=== PATIENT | female | born 1955 | race Caucasian/White ===

== ENCOUNTER 2017-08-27 08:19 | Emergency (ER) | payer OTHER ==
[~2017-08-27] VITALS: Ht 152.4 cm; Wt 68.6 kg
[2017-08-27 08:24] VITALS: BP 163/86
--- NOTE | 2017-08-27 08:29 | NUR ---
PT AMB TO BED 11
--- NOTE | 2017-08-27 08:30 | NUR ---
61/F BIB DAUGHTER WITH C/O VOMITING, DIZZINESS, R EAR PAIN & ELAINE X 2 DAYS. SKIN IS PINK/WARM/DRY; AAOX4 WITH EVEN AND STEADY GAIT; LUNGS CLEAR BL. PATIENT STATES PAIN OF 6/10 AT THIS TIME.PATIENT POSITIONED FOR COMFORT; HOB ELEVATED; BEDRAILS UP X2; BED DOWN. JORJE REYNOLDS MADE AWARE OF PT STATUS. Addendum: 08/27/17 at 0853 [facility].
--- NOTE | 2017-08-27 08:35 | NUR ---
Patient being evaluated by DR JJ at bedside.
[2017-08-27] MEDS ORDERED: MECLIZINE 25 MG TAB PO ONE (08:45)
[2017-08-27] MEDS ORDERED: ONDANSETRON 4 MG ODT PO ONE (08:45)
--- NOTE | 2017-08-27 08:56 | NUR ---
EKG AT BEDSIDE.
--- NOTE | 2017-08-27 09:48 | NUR ---
Patient appears to be resting comfortably in bed. BP 143/80; C/O ELAINE 3/10 AT THIS TIME, Respirations even and unlabored. WILL CONTINUE TO MONITOR.
[2017-08-27 10:28] VITALS: BP 141/72
--- NOTE | 2017-08-27 10:28 | NUR ---
Patient discharged with BP 141/72. Written and verbal after care instructions given and explained. Patient alert, oriented and verbalized understanding of instructions. Ambulatory with W/C. All questions addressed prior to discharge. ID band removed. Patient advised to follow up with PMD. Rx of ZOFRAN & MECLIZINE given. Patient educated on indication of medication including possible reaction and side effects. Opportunity to ask questions provided and answered.
== END 2017-08-27 10:28 | disposition home or self-care (01) ==
LOC: MED 08:19
DX: H81.392 Other peripheral vertigo, left ear (principal); G51.0 Bell's palsy; E11.40 Type 2 diabetes mellitus with diabetic neuropathy, unspecified
CPT/HCPCS: 82948; 93005; 99283; J8597; S0119; 81002

== ENCOUNTER 2019-08-15 22:06 | Emergency (ER) | payer OTHER ==
[~2019-08-15] VITALS: Ht 152.4 cm; Wt 67.6 kg
[2019-08-15 22:15] VITALS: BP 149/77
--- NOTE | 2019-08-15 22:18 | NUR ---
PT AMBULATED TO BED #6 WITH DAUGHTER
--- NOTE | 2019-08-15 22:25 | NUR ---
PT C/O COUGH AND FEVERS X 3 DAYS. PT STATES COUGHING UP CLEAR FLEGM. PT APPEARS TO BE IN NO DISTRESS AT THIS TIME. PT DID NOT TAKE TEMPATURE AT HOME, JUST FELT HOT. PT LUNGS CLEAR. 100% RA. DENIES N/V/D; SKIN IS PINK/WARM/DRY; AAOX4 WITH EVEN AND STEADY GAIT; LUNGS CLEAR BL; HR EVEN AND REGULAR; PT DENIES ANY CP OR SOB AT THIS TIME; PATIENT STATES PAIN OF 0/10 AT THIS TIME; VSS; PATIENT POSITIONED FOR COMFORT; HOB ELEVATED; BEDRAILS UP X1; BED DOWN. ER MD MADE AWARE OF PT STATUS.
--- NOTE | 2019-08-15 22:45 | NUR ---
DR. WINTERS AT BEDSIDE ASSESSING PT.
[2019-08-15] MEDS ORDERED: ACETAMIN/CODEINE 120/12MG-5ML 5 ML UDC PO ONE (22:55)
[2019-08-15 23:07] VITALS: BP 144/78
--- NOTE | 2019-08-15 23:07 | NUR ---
DR. WINTERS AT BEDSIDE DC PT. UNABLE TO FALLOW UP ON TYLENOL AND CODINE. Patient discharged with v/s stable. Written and verbal after care instructions given and explained. Patient alert, oriented and verbalized understanding of instructions. Ambulatory with steady gait. All questions addressed prior to discharge. ID band removed. Patient advised to follow up with PMD. Rx of AUGMENTIN AND TESSALON given. Patient educated on indication of medication including possible reaction and side effects. Opportunity to ask questions provided and answered.
== END 2019-08-15 23:07 | disposition home or self-care (01) ==
LOC: MED 22:06
DX: J20.9 Acute bronchitis, unspecified (principal); E11.9 Type 2 diabetes mellitus without complications
CPT/HCPCS: 99283

== ENCOUNTER 2021-07-13 16:58 | Emergency (ER) | payer OTHER ==
[~2021-07-13] VITALS: Ht 149.9 cm; Wt 61.2 kg
[2021-07-13 18:08] VITALS: BP 136/94
[2021-07-13] MEDS ORDERED: ACETAMINOPHEN EXTRA STRENGTH 500 MG TAB PO ONE (18:25)
[2021-07-13] MEDS ORDERED: ONDA-188 SL (19:02)
[2021-07-13] MEDS ORDERED: NAPR-54 PO (19:02)
[2021-07-13] MEDS: METOCLOPRAMIDE 10 MG TAB PO ONE (19:04)
[2021-07-13] MEDS: KETOROLAC 30 MG/ML VIAL IM ONE (19:04)
[2021-07-13 19:15] VITALS: BP 136/94
== END 2021-07-13 17:10 | disposition home or self-care (01) ==
LOC: MED 16:58
DX: R51.9 Headache, unspecified (principal); H57.11 Ocular pain, right eye; H57.89 Other specified disorders of eye and adnexa; E11.9 Type 2 diabetes mellitus without complications
CPT/HCPCS: 70450; 96372; 99284; J1885; J8597; Q0163

== ENCOUNTER 2021-07-15 21:13 | Emergency (ER) | payer OTHER ==
[~2021-07-15] VITALS: Ht 152.4 cm; Wt 62.2 kg
[~2021-07-15 21:13] MED LIST: NAPR-54 PO; ONDA-188 SL
[2021-07-15 22:00] VITALS: BP 151/93
[2021-07-15] MEDS ORDERED: LANO1OIN26 OP (23:05)
[2021-07-15] MEDS ORDERED: PRED20TA5 PO (23:05)
[2021-07-15] MEDS ORDERED: POLY10SO3 OP (23:05)
[2021-07-15] MEDS ORDERED: POLY15SO74 OP (23:05)
[2021-07-15 23:31] VITALS: BP 151/93
--- NOTE | 2021-07-15 23:31 | NUR ---
Patient discharged with v/s stable. Written and verbal after care instructions given and explained. Patient alert, oriented and verbalized understanding of instructions. Ambulatory with steady gait. All questions addressed prior to discharge. ID band removed. Patient advised to follow up with PMD. Rx of ARTIFICIAL TEARS, POLYMYXIN BTEMP, ARTIFICIAL TEARS OINTMENT, DELTASONE given. Patient educated on indication of medication including possible reaction and side effects. Opportunity to ask questions provided and answered.
--- NOTE | 2021-07-15 23:40 | NUR ---
Note rajnitres in EDM - 07/15/21 at 2341 by MED Patient discharged with v/s stable. Written and verbal after care instructions given and explained. Patient alert, oriented and verbalized understanding of instructions. Ambulatory with steady gait. All questions addressed prior to discharge. ID band removed. Patient advised to follow up with PMD. Rx of ARTIFICIAL TEARS, POLYMYXIN BTEMP, ARTIFICIAL TEARS OINTMENT, DELTASONE given. Patient educated on indication of medication including possible reaction and side effects. Opportunity to ask questions provided and answered.
== END 2021-07-15 23:31 | disposition home or self-care (01) ==
LOC: MED 21:13
DX: G51.0 Bell's palsy (principal); H10.9 Unspecified conjunctivitis; B96.89 Other specified bacterial agents as the cause of diseases classified elsewhere; E11.9 Type 2 diabetes mellitus without complications; Z79.899 Other long term (current) drug therapy
CPT/HCPCS: 99283

== ENCOUNTER 2023-01-30 09:30 | Emergency (ER) | payer OTHER ==
[~2023-01-30] VITALS: Ht 157.5 cm; Wt 77.1 kg
[~2023-01-30 09:30] MED LIST changes: +LANO1OIN26 OP; +POLY10DR5 OP; +POLY15SO74 OP; +PRED20TA5 PO
[2023-01-30 09:41] VITALS: BP 160/83; PULSE 98; RESP 14; TEMP 97.4; O2SAT 98
--- NOTE | 2023-01-30 10:45 | NUR ---
67 Y/O F PATIENT FROM HOME PRESENTS TO ED WITH SIGNS OF HEADACHE, RINGING IN EAR, AND [place]UEA. PT SATTING AT 98% . DENIES VOMITING AND DIAHERRA; SKIN IS PINK/WARM/DRY; AAOX4, PT AMBULATES WITH ASSIST; LUNGS CLEAR BL; HR EVEN AND REGULAR; PT DENIES ANY FEVER, CP, SOB, OR COUGH AT THIS TIME; PATIENT STATES PAIN OF 0/10 AT THIS TIME; VSS; PATIENT POSITIONED FOR COMFORT; HOB ELEVATED; BEDRAILS UP X2; BED DOWN. CALL LIGHT WITH IN REACH ER MD MADE AWARE OF PT STATUS. PMHX HTN DM ALLERGIES NONE
[2023-01-30 10:50] VITALS: O2SAT 98
--- NOTE | 2023-01-30 11:43 | NUR ---
Pt has been sent to CT.
--- NOTE | 2023-01-30 12:23 | NUR ---
PT HAS BEEN OFFERED A MEAL. WAITING FOR RESULTS FROM CT.
[2023-01-30 12:53] VITALS: BP 148/66; PULSE 73; RESP 20; TEMP 97.1; O2SAT 97
--- NOTE | 2023-01-30 12:56 | NUR ---
Patient discharged with v/s stable. Written and verbal after care instructions given and explained. Patient verbalized understanding. Ambulatory with steady gait. All questions addressed prior to discharge. Advised to follow up with PMD.
--- NOTE | 2023-01-30 13:00 | NUR ---
The patient's care was reviewed and supervised by [facility], RN.
== END 2023-01-30 13:00 | disposition home or self-care (01) ==
LOC: MED 09:30
DX: I10 Essential (primary) hypertension (principal); R51.9 Headache, unspecified; R42 Dizziness and giddiness; H93.11 Tinnitus, right ear; E11.9 Type 2 diabetes mellitus without complications; Z79.899 Other long term (current) drug therapy
CPT/HCPCS: 70450; 99284